=== PATIENT | male | born 1955 | race Caucasian/White ===

== ENCOUNTER 2017-02-01 05:40 | Day surgery (SDC) | payer BC ==
[~2017-02-01] VITALS: Ht 167.6 cm; Wt 99.8 kg
[~2017-02-01 05:40] MED LIST: AMLODIPINE BESYL5 MG PO; CARVEDILOL25 MG PO; LEVOXYL137 MCG PO; LIPITOR10 MG PO; LISINOPRIL-HCT1 EACH PO; LO-DOSE ASPIRIN81 MG PO
--- NOTE | 2017-02-01 08:15 | NUR ---
02/01/17 0814 YfnJorge soto PT CONTINUES TO DENIE ANY PROBLMES.
--- NOTE | 2017-02-02 11:31 | OR ---
[facility] [address] [place], [place] [address] Signed DATE OF PROCEDURE: 02/01/17 PREOPERATIVE DIAGNOSIS: Bilateral perianal comedones. POSTOPERATIVE DIAGNOSIS: Bilateral perianal comedones. PROCEDURE: Excision of perianal comedones x5. ESTIMATED BLOOD LOSS: None. INDICATIONS Chan is a 61-year-old gentleman who has had trouble with fairly significant perianal comedones as of late. He has 1 that he thinks is either infected or draining or both. He had been to his primary care provider. He was asked to see me with respect to the above. His colonoscopy in April 2015 showed some polyps along with some internal hemorrhoids and a little diverticulosis. 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 In the office, we can see that Chan has significant bilateral perianal comedones, simply too large actually to excise in the office. In the left anterior position, there was a little bit of infection, just a little bit of pus in that area and it was draining. I explained the Chan the nature of perianal comedones and the idea behind excising these cysts. They are basically sebaceous glands that are affected and/or clogged up with sebum. This is a s k in condition. It is not related to hemorrhoids, although the surgery is very similar. I explained the Bill we would excise those areas and we just leave them open. They will heal in secondarily over couple of months. He had expressed understanding wished to proceed. He understands the risks including, but not limited to bleeding, infection, scarring, change in contour of the skin as well as recurrent perianal comedones. He had expressed understanding and wished to proceed. PROCEDURE IN DETAIL Chan was ta dean into the operating room and placed in the prone donnie-knife position with appropriate padding and monitoring. Our nurse senior auditor had given him a saddle block. He was given IV sedation per our nurse senior auditor. He was then prepped and draped in the usual sterile fashion. He was given his subcutaneous heparin after the saddle block. He was also given preoperative antibiotics. SCDs were utilized. He was then prepped and draped in the usual sterile fashion. We excised the infected area at the 7 o'clock position 1st and then at the 5 o'clock position was a similar lesion although not infected, it was excised, and then 3 smaller lesions at the 9 and 10 o'clock positions on the left side. All 3 areas were opened and left clean. Local anesthetic was then injected around the anus for a field block. We then placed dry gauze with anus along with dry underwear. Chan was then rotated into the supine position Electronically Signed By: BIGG PENNY MD 02/02/17 1131 PATIENT NAME: CHAN CAVANAUGH OPERATIVE REPORT DATE OF : 55 PHYSICIAN: BIGG PENNY MD REPORT #: [id number] REPORT IS CONFIDENTIAL AND NOT TO BE RELEASED WITHOUT AUTHORIZATION [address] [address] Signed onto his hospital bed. We noticed that his scrotum has quite a bit larger than usual and I suspect he has a hernia and/or hydrocele. We will have to remember to look at that in the office. Afterwards, he was taken into recovery room in stable condition. MD KRISTEN Bennett/Modl /[id number] cc: Dr. Eliezer Bennett Electronically Signed By: BIGG PENNY MD 02/02/17 1131 PATIENT NAME: CHAN CAVANAUGH OPERATIVE REPORT DATE OF : 55 PHYSICIAN: BIGG PENNY MD REPORT #: [id number] REPORT IS CONFIDENTIAL AND NOT TO BE RELEASED WITHOUT AUTHORIZATION
== END 2017-02-01 08:48 | disposition home or self-care (01) ==
LOC: DS 05:40
PROVIDERS: Colon & Rectal Surgery
PROC: 0HBAXZZ Excision of Inguinal Skin, External Approach (ICD-10-PCS; principal; 2017-02-01 06:45)
DX: L72.0 Epidermal cyst (principal); I10 Essential (primary) hypertension; E78.5 Hyperlipidemia, unspecified; R73.03 Prediabetes; I25.10 Atherosclerotic heart disease of native coronary artery without angina pectoris; Z98.890 Other specified postprocedural states; Z79.82 Long term (current) use of aspirin; Z79.899 Other long term (current) drug therapy
CPT/HCPCS: 00902; J0694; J1644; J1885; J2250; J2405; J2704; J7120

== ENCOUNTER 2020-01-27 08:55 | Day surgery (SDC) | payer BC ==
[~2020-01-27] VITALS: Ht 167.6 cm; Wt 104.3 kg
[~2020-01-27 08:55] MED LIST changes: -LEVOXYL137 MCG PO; +LEVOXYL175 MCG PO
--- NOTE | 2020-01-27 11:38 | NUR ---
ABX COMPLETE. PT RESTING COMFORTABLY IN BED. NO FURTHER REQUESTS AT THIS TIME. CALL LIGHT WITHIN REACH.
--- NOTE | 2020-01-27 14:46 | NUR ---
01/27/20 1446 Su Guo 1437-PATIENT ARRIVED TO PACU ON 6L MASK NONAROUSABLE. RN HOLDING JAW TO MAINTAIN OPEN AIRWAY. RR EVEN. DRESSING TO SCROTAL WITH ATHLETIC SUPPORTER CDI. SR. PATIENT MOUTH SUCTIONED THIN SECRETIONS. 1440-PATIENT MAINTAINING OWN AIWAY COUGHING HOB ELEVATED. PILLOW PLACED AGAINST ABDOMEN TO BRACE INCISION. 1445-PATIENT AWAKE DENIES PAIN OR NAUSEA. 6L MASK RR EVEN. ICE TO SCROTAL AREA.
--- NOTE | 2020-01-27 15:19 | NUR ---
PT ARRIVED FROM PACU. REPORT RECEIVED FROM NATASHA Robert RN. PT BED IS LOWERED, SIDE RAILS UP, CALL LIGHT WITHIN REACH. WATER PROVIDED.
--- NOTE | 2020-01-27 15:33 | NUR ---
PT WATER REFILLED AND GIVEN PUDDING. BED RAILS UP, BED LOWERED, CALL LIGHT WITHIN REACH. NO FURTHER REQUESTS AT THIS TIME.
--- NOTE | 2020-01-28 05:59 | OR ---
[facility] [address] [place], [place] [address] Signed DATE OF OPERATION: 01/27/2020 SURGEON: Bigg Penny MD PREOPERATIVE DIAGNOSIS: Incarcerated right inguinal hernia. POSTOPERATIVE DIAGNOSIS: Large noncommunicating right hydrocele. PROCEDURE: Right hydrocelectomy. ESTIMATED BLOOD LOSS: None. 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 He told me he had his aortic arch replaced back in 2014. He also had a substernal goiter removed at the same time. However, he has noticed pain and swelling in the right groin and right scrotum. He said he cannot push it back inside. He decided to come to the office for evaluation. In the office, he had a very large swelling in the right hemiscrotum. It was even difficult to find the testicle. The left testicle was unremarkable. It was difficult to examine the inguinal canal on the right as well as the left. In the office, I had to explain to Chan, he appeared to have a rather large right inguinal hernia extending down to his hemiscrotum. Of course, large hydrocele was always in the differential diagnosis. I reviewed with him the nature of the surgery along with the risks including, but not limited to bleeding, infection, scarring, change in contour of the skin, damage to nerves, ischemic orchitis, recurrent hernias, and chronic pain. He had expressed understanding and wished to proceed. DESCRIPTION OF PROCEDURE: I had met with Chan in our preop area. Once again, we examined the right groin and marked that appropriately. After this, he was taken to the operating room and placed in the supine position under general endotracheal tube anesthesia. He was given preoperative antibiotics along with subcutaneous heparin. SCDs were utilized. He was then prepped and draped in the usual sterile fashion. Once again, we could not feel much fullness in the inguinal canal itself. We utilized a standard oblique incision in Electronically Signed By: BIGG PENNY MD 01/28/20 0559 PATIENT NAME: HCAN CAVANAUGH OPERATIVE REPORT DATE OF : 55 REPORT #: [id number] PHYSICIAN: BIGG PENNY MD PCP: ANNIA WYMAN MD REPORT IS CONFIDENTIAL AND NOT TO BE RELEASED WITHOUT AUTHORIZATION [facility] [address] [place], [place] [address] Signed the groin and carried that down through the tissue bluntly and with the cautery. We opened up the external oblique and we elevated the cord structures at the level of pubic tubercle with the help of a Khalif drain. We examined the direct space and indirect space and we found no hernia component. On palpation and inspection, we found that he had a rather large noncommunicating hydrocele of the right testicle. I did not open the direct space to examine the femoral canal. I did examine the femoral canal below the inguinal ligament and it was unremarkable. I had extended the incision about 2 cm towards the scrotum and even then we could not evacuate the hydrocele as it is quite large. We went ahead and made a small hole in the top of the hydrocele and evacuated all of thin straw-colored serous fluid. That allowed us to bring the testicle and the hydrocele sac up into the operative field. We the cord structures from the hydrocele sac away back down to the epididymis and stopped. We had open the hydrocele sac and we folded it around and then we stopped. The left the gubernacular intact as well. We then excised the entire hydrocele sac with the help of the cautery back to the testicle and again leaving the epididymis in place, we did not perform a Bottleneck procedure. The hydrocele sac was then sent off to the pathology department. We then placed the testicle, the epididymis back into the right hemiscrotum. We made sure there was no torsion. The right hemiscrotum and the groin were irrigated and suctioned out until clear. We then closed the external oblique with the help of a running 2-0 PDS suture down to the external ring. The Annmarie fascia was reapproximated with a running 3-0 Monocryl suture. The dermis was reapproximated with interrupted 3-0 subcuticular Monocryl sutures. The skin edges were reapproximated with a running 5-0 fast absorbing plain gut suture. Dry gauze and tape were applied along with athletic supporter. After this, Chan was awakened from his anesthesia, extubated in the OR, and taken to recovery room in stable condition. Bigg Penny MD ALB/MODL /[id number] cc: Chart Filed Incomplete MD Bigg Meza MD Electronically Signed By: BIGG PENNY MD 01/28/20 0559 PATIENT NAME: CHAN CAVANAUGH OPERATIVE REPORT DATE OF : 55 REPORT #: [id number] PHYSICIAN: BIGG PENNY MD PCP: ANNIA WYMAN MD REPORT IS CONFIDENTIAL AND NOT TO BE RELEASED WITHOUT AUTHORIZATION [id number] [place], [place] [address] Signed Copies: CHART FILED INCOMPLETE ANNIA WYMAN MD, ANDREW L MD ~ Electronically Signed By: BIGG PENNY MD 01/28/20 0559 PATIENT NAME: CHAN CAVANAUGH OPERATIVE REPORT DATE OF : 55 REPORT #: [id number] PHYSICIAN: BIGG PENNY MD PCP: ANNIA WYMAN MD REPORT IS CONFIDENTIAL AND NOT TO BE RELEASED WITHOUT AUTHORIZATION
--- NOTE | 2020-01-29 14:47 | PATH ---
[facility] [address] [place], [place] [address] Signed SPECIMEN(S): A RIGHT HYDROCELE SAC SPECIMEN SOURCE: A. RIGHT HYDROCELE SAC CLINICAL HISTORY: Right incarcerated inguinal hernia, right hydrocele. FINAL PATHOLOGIC DIAGNOSIS: Hydrocele sac, right, excision: - Fibromembranous tissue with fibrosis and chronic inflammation, consistent with hydrocele sac. - Focal foreign body type giant cell reaction with cholesterol clefting and pigmented macrophages, feature suggestive of prior injury/rupture. NAL:cml:C2NR MICROSCOPIC EXAMINATION: Histologic sections of all submitted blocks are examined by light microscopy. These findings, together with the gross examination, support the pathologic diagnosis. Immunohistochemical stains (with appropriately staining controls) were performed. Focal entrapped epithelioid cells are present in the fibromembraous tissue. Immunohistochemical stains (with appropriately staining controls) were performed. The entrapped cells are positive for calretinin and WT1, supporting mesothelial origin. These finding confirm the above diagnosis. NAL:cml GROSS DESCRIPTION: The specimen, labeled "WR," and designated on the requisition "right hydrocele sac," is received in formalin and consists of an irregular portion of pink-georges to hemorrhagic soft to membranous tissue (17.7 x 4.5 x 0.9 cm). Electrical Engineering Manager sections are submitted in cassette (A1). AC (under the direct supervision of a pathologist) The Gross Description was prepared using a voice recognition system. The report was reviewed for accuracy; however, sound-alike word errors, addition and/or deletions may occur. If there is any question about this report, please contact Client Services. ADDITIONAL NOTES: Immunohistochemical and/or in situ hybridization studies were performed on this PATIENT NAME: CARRIE CAVANAUGH PATHOLOGY DATE OF : 55 REPORT #: [id number] PHYSICIAN: JARRED PATHOLOGY PCP: ANNIA WYMAN MD REPORT IS CONFIDENTIAL AND NOT TO BE RELEASED WITHOUT AUTHORIZATION [facility] [address] [place], [place] [address] Signed case with the appropriate positive controls that react as expected. This test was developed and its performance characteristics determined by [facility]. It has not been cleared or approved by the U.S. Food and Drug Administration. The FDA has determined that such clearance or approval is not necessary. This test is used for clinical purposes. It should not be regarded as investigational or for research. [facility] is certified under the Clinical Laboratory Improvement Amendments of 1988 (CLIA) as qualified to perform high complexity clinical laboratory testing. PERFORMING LABORATORY: The technical component was performed by [facility], [address] [place] [id number] (Erp Specialist: Araceli Bravo MD; CLIA# [id number]). [facility], [address] [address] (CLIA# [id number]). Diagnostician: Marnie Stoll MD Pathologist Electronically Signed 01/29/2020 Copies: ~ PATIENT NAME: CARRIE CAVANAUGH PATHOLOGY DATE OF : 55 REPORT #: [id number] PHYSICIAN: JARRED CABAN PCP: ANNIA WYMAN MD REPORT IS CONFIDENTIAL AND NOT TO BE RELEASED WITHOUT AUTHORIZATION
== END 2020-01-27 16:20 | disposition home or self-care (01) ==
LOC: DS 08:55
PROVIDERS: ATTEND Colon & Rectal Surgery
PROC: 0VBF0ZZ Excision of Right Spermatic Cord, Open Approach (ICD-10-PCS; principal; 2020-01-27 09:30)
DX: N43.3 Hydrocele, unspecified (principal); I10 Essential (primary) hypertension; I25.10 Atherosclerotic heart disease of native coronary artery without angina pectoris; E55.9 Vitamin D deficiency, unspecified; E03.9 Hypothyroidism, unspecified; Z79.899 Other long term (current) drug therapy; Z79.82 Long term (current) use of aspirin
CPT/HCPCS: 00920; J0330; J0690; J1100; J1644; J1885; J2001; J2250; J2405; J2704; J7121

== ENCOUNTER 2020-06-16 19:30 | Inpatient (IN) | payer BC ==
[~2020-06-16] VITALS: Ht 167.6 cm; Wt 88.4 kg
--- NOTE | 2020-06-17 01:30 | NUR ---
0116 pt ARRIVED TO FLOOR VIA STRETCHER, AMBULATED SELF TO BED. ASSESSMENT DONE. pt REPORTED 7/10 PAIN, REFUSED PAIN MEDICAITON AT THIS TIME. LUNGS HAVE CRACKLES IN THE BASES, CLEAR IN THE UPPERS. pt REPORTED AN "OPEN HEART SURGERY, TO REPAIR AN AORTIC ANEURYSM" SCAR NOTED. pt ALERT AND ORIENTED. SISTER, RANDA, ARRIVED WITH pt, LEFT AFTER ADMISSION WAS COMPLETED. pt GIVEN XARELTO PER ORDERS, LR INFUSING PER ORDERS. pt REPORTS HE WORKS AT [employer] AND LIVES ALONE. AMBULATES WITHOUT ASSISTANCE AT BASELINE. CALL LIGHT IN HAND. ORIENTATION TO UNIT AND ROOM.
--- NOTE | 2020-06-17 03:24 | NUR ---
ROUNDED ON pt. RESTING IN BED WITH EYES CLOSED, RESPIRATIONS REGULAR, RATE 20. CALL LIGHT WITHIN REACH.
--- NOTE | 2020-06-17 05:45 | NUR ---
IN TO DO ASSESSMENT. pt RESTING IN BED, EYES CLOSED, RESPIRATIONS REGULAR AND UNLABORED. WOKE TO VOICE. REPORTED "SOME PAIN" REFUSED PAIN MEDICATION AT THIS TIME. NO CHANGES IN ASSESSMENT. pt ABLE TO URINATE AT BEDSIDE USING URINAL. BREAKFAST ORDER TAKEN. CALL LIGHT WITHIN REACH.
--- NOTE | 2020-06-17 07:30 | NUR ---
PATIENT REPORT RECIEVED FROM PUBLICATIONS PRODUCTION SUPERVISOR RN. PATIENT RESTING IN BED AT THIS TIME. PATIENT CALLS APPROPRIATELY. WILL CONTINUE TO CLOSELY MONITOR.
[2020-06-17] MEDS ORDERED: ISOSORBIDE MONO30 MG PO (08:19)
--- NOTE | 2020-06-17 09:11 | NUR ---
MED REC COMPLETE
--- NOTE | 2020-06-17 09:30 | NUR ---
PATIENT SHIFT ASSESSMENT COMPLETED. PATIENT SITTING UP IN THE BED AND FINISHED HIS BREAKFAST. PATIENTS BREATH SOUNDS CLEAR AND DIMINISHED IN BASES. PATIENT DENIES SOB. RR 18. SPO2 98% ON RA. PATIENT DOES REPORT SOME PAIN IN RIGHT RIB, BUT DENIES WANTING PRN PAIN MEDICATION. WILL PLACE PATIENT ON TELEMETRY UNIT TO ALLOW PATIENT TO WALK TO THE BATHROOM ON HIS OWN. PATIENT STATES "I FEEL FINE, I WAS HOPING TO GO HOME TODAY". WILL CHECK WITH MD WHAT HER PLAN OF CARE IS FOR PATIENT. REST OF ASSESSMENT IS WNL. WILL CONTINUE TO CLOSELY MONITOR.
--- NOTE | 2020-06-17 10:00 | NUR ---
Pt lives in [place] in a 1 story home with 2 steps. Works at [employer]. He lives alone. Denies use of DME. States he has had a cough h and coughed sm amt of blood the last few days. He denies sob. Pt denies needs and states his sisters will help if he has any needs. Pt plans on dc to home when cleared medically, with assist from his sisters.
--- NOTE | 2020-06-17 11:30 | NUR ---
IN TO SEE PATIENT. PATIENT RESTING ON THE COUCH RIGHT NOW. PATIENT UPDATED ON PLAN OF CARE TO BE ADMITTED THROUGH THE DAY. NO OTHER QUESTIONS AT THIS TIME. PATIENT CONTINUES TO DENY SOB. PAIN IS TOELRABLE AT THIS TIME. CALL LIGHT IN REACH. WILL CONTINUE TO CLOSELY MONITOR.
--- NOTE | 2020-06-17 11:49 | NUR ---
PODIATRIC ASSISTANT IN WITH PT, WILL CHECK BACK.
--- NOTE | 2020-06-17 12:47 | EKG ---
[facility] [address] [facility] [place] [address] Signed Normal sinus rhythm Possible Left atrial enlargement Nonspecific ST abnormality Abnormal ECG When compared with ECG of 19-JAN-2020 11:03, No significant change was found Confirmed by ROBERT MCADAMS MD ([id number]) on 06/17/2020 12:47:41 PM Electronically Signed By: ROBERT MCADAMS MD 06/17/20 1247 PATIENT NAME: AFSHANCARRIE VERNELL Electrocardiogram DATE OF : 55 PHYSICIAN: ROBERT MCADAMS MD REPORT #: [id number] REPORT IS CONFIDENTIAL AND NOT TO BE RELEASED WITHOUT AUTHORIZATION
--- NOTE | 2020-06-17 13:30 | NUR ---
PATIENT RESTING ON THE COUCH AT THIS TIME. PATIENTS SISTER IS IN THE ROOM. UPDATED ON PLAN OF CARE. NO OTHER NEEDS AT THIS TIME. WILL CONTINUE TO CLOSELY MONITOR.
--- NOTE | 2020-06-17 15:30 | NUR ---
PATIENT WALKING AROUND IN HIS ROOM AND TOLERATING WELL. PATIENTS SISTER IN TO SEE PATIENT. NO OTHER NEEDS AT THIS TIME. PATIENT DECLINED WANTING TO ORDER DINENR YET. WILL CONTINUE TO CLOSELY MONITOR.
--- NOTE | 2020-06-17 17:30 | NUR ---
PATIENTS DINNER FINISHED. PATIENT RESTING IN THE CHAIR. MAGNESIUM FINISHED AND TURNED OFF. PATIENTS SISTER IN AT THE BEDSIDE. PATIENT UP TO THE BATHROOM INDEPENDLENTLY. WILL BE BACK TO SEE PATIENT SHORTLY.
--- NOTE | 2020-06-17 18:00 | NUR ---
PATIENT UPDATED ON PLAN OF CARE. PATIENT WILL TRANSFER TO THE MEDICAL UNIT. PATIENT AGREEABLE TO PLAN OF CARE. ALL QUESTIONS ANSWERED. NO OTHER NEEDS AT THIS TIME. WILL CONTINUE TO CLOSELY MONITOR.
--- NOTE | 2020-06-17 19:20 | NUR ---
THIS [employer]ER[employer] PRODU[employer] SALES ENGINEER TRANSFERED PT TO [facility] VIA WHEELCHAIR
--- NOTE | 2020-06-17 19:45 | NUR ---
PATIENT JUST MOVED OVER FROM CCU. PATIENT HAVING NO PAIN, OR ANY ISSUES AT ALL AT THIS TIME. PATIENT HAS A FAMILY MEMBER VISITING WITH HIM, PATIENT UP IN THE CHAIR WATCHING TV, ICE WATER GIVEN AND CALL LIGHT IN REACH. PATIENT INDEPENDENT IN ROOM.
--- NOTE | 2020-06-17 21:59 | NUR ---
PATIENT RESTING QUIETLY IN BED, EYES CLOSED, LIGHTS DOWN, RESPIRATIONS REGULAR AND EVEN, CALL LIGHT IN REACH.
--- NOTE | 2020-06-17 23:51 | NUR ---
PATIENT CONTINUES TO REST QUIETLY IN BED, RESPIRATIONS REGULAR AND EVEN, EYES CLOSED, CALL LIGHT IN REACH.
--- NOTE | 2020-06-18 02:08 | NUR ---
PATIENT CONTINUES TO REST QUIETLY, EYES CLOSED, RESPIRATIONS, REGULAR AND EVEN, SUPINE, CALL LIGHT IN REACH.
--- NOTE | 2020-06-18 03:08 | NUR ---
PATIENT STILL RESTING SUPINE, RESPIRATIONS REGULAR AND EVEN, EYES CLOSED, CALL LIGHT IN REACH.
--- NOTE | 2020-06-18 05:03 | NUR ---
PATIENT IS STILL RESTING QUIETLY, RESPIRATIONS REGULAR AND EVEN, EYES CLOSED, CALL LIGHT IN REACH.
--- NOTE | 2020-06-18 06:16 | NUR ---
IN TO GET PT VITALS, PT UP IN CHAIR, WILL PROVIDE PT WITH COFFEE ONCE DONE BREWING, RN IN FOR ASSESMENT, NO FURTHER NEEDS AT THIS TIME
--- NOTE | 2020-06-18 06:23 | NUR ---
PATIENT RESTED MOST OF THE NIGHT, BUT DID GET UP TO VOID 5 TIMES. PATIENT STILL BREATHING WITHOUT DIFFICULTY AND HAS NOT BEEN HAVING PAIN. PATIENT SAYS ,"I'M AT THE STARTING GATE AND READY TO GO." PATIENT IS READY TO GO HOME.
--- NOTE | 2020-06-18 07:15 | NUR ---
REPORT RECEIVED FROM DORCAS SY. PT UP TO CHAIR. PT REPORTS 8/10 PAIN IN UPPER CHEST WITH DEEP BREATHS. PT REPORTS PAIN IS "TOLERABLE" AND DENIES NEED FOR PAIN MEDICATION AT THIS TIME. PT ANTICIPATING BREAKFAST AND DISCHARGE. PT UPDATED ON PLAN OF CARE. NO ADDITIONAL REQUESTS OR COMPLAINTS AT THIS TIME. CALL LIGHT WITHIN REACH.
--- NOTE | 2020-06-18 07:36 | NUR ---
MORNING ASSESSMENT AND MEDICATION DUE. PT UP TO CHAIR WATCHING VIDOES ON HIS PHONE. PT DENIES PAIN AND NAUSEA. REPORTS PAIN AT 8/10 IN UPPER CHEST ONLY WITH DEEP BREATHING. ASSESSMENT DONE: PT TYPICALLY TAKING SHALLOW BREATHS, LUNG SOUNDS CLEAR. NO ACCESSORY MUSCLE USE NOTED. O2 AT 96% ON ROOM AIR. PT REPORTS HE CONTINUES TO COUGH UP " A LITTLE BIT OF BLOOD EVERY ONCE IN A WHILE." NO COUGH OR SPUTUM NOTED AT THIS TIME. SKIN GROSELY WELL INTACT. PT STEADY ON FEET AND DENIES SHORTNESS OF BREATH WITH ACTIVITY. PT REMAINS UP TO CHAIR ANTICIPATING BREAKFAST. PT STATES HE FEELS READY TO GO HOME AND HOPES TO LEAVE THIS MORNING. PT REPORTS HIS SISTER WILL BE ARRIVING TO TAKE HIM HOME. NO ADDIITONAL REQUESTS OR COMPLAINTS. COFFEE PROVIDED. CALL LIGHT WITHIN REACH.
[2020-06-18] MEDS ORDERED: XARELTO15 MG PO (09:23)
[2020-06-18] MEDS ORDERED: POTASSIUM CHLO10 MEQ PO (09:24)
[2020-06-18] MEDS ORDERED: XARELTO20 MG PO (09:24)
[2020-06-18] MEDS ORDERED: MAGNESIUM OXID400 M1 PO (09:25)
--- NOTE | 2020-06-18 09:26 | NUR ---
PATIENT SITTING UP IN CHAIR, VITALS AND I&OS CHARTED. CALLL LIGHT IN REACH, NO OTHER NEEDS AT THIS TIME
--- NOTE | 2020-06-18 10:16 | NUR ---
THIS RN TO ROOM TO CHECK ON PT. PT UP TO CHAIR VISITING WITH SISTER. PT DENIES PAIN AND NASUEA AND STATES HE IS READY FOR DISCHARGE. PT UP TO DRESS SELF, STEADY ON FEET, NO ASSISTANCE NEEDED. PT DENIES SHORTNESS OF BREATH WITH ACTIVITY. IV DC'D PER PROTOCOL, RODRIGO AND ROSARIO APPLIED. NO ADDITIONAL REQUESTS OR COMPLAINTS AT THIS TIME. CALL LIGHT WITHIN REACH. SISTER AT BEDSIDE.
--- NOTE | 2020-06-18 10:34 | NUR ---
PATIENT UP IN CHAIR, IN ROOM. D/C VITALS CHARTED. RN IN FOR D/C INSTRUCTIONS
--- NOTE | 2020-06-18 10:42 | NUR ---
PT READY FOR DISCHARGE. PHARMACIST TO BEDSIDE TO REVIEW MEDICATIONS WITH PT AND PTS SISTER. PT AND HIS SISTER VERBALIZE UNDERSTANDING OF MEDICAITONS AND STATE THEIR QUESTIONS HAVE BEEN ANSWERED. DISCHARGE INSTRUCTIONS REVEIWED WITH PT AND PTS SISTER. PT AND SISTER VERBALIZES UNDERSTANDING OF INSTRCUTIONS, MEDICAITONS, AND FOLLOW UP APPOINTMENTS. PT TRANSFERES SELF TO WHEEL CHAIR AND IS WHEELED FROM MED/SURG TO MEET SISTER OUT FRONT. NO ADDITIONAL REQUESTS OR CONCERNS.
== END 2020-06-18 10:45 | disposition home or self-care (01) | DRG 176 ==
LOC: ED 19:30 → CCU 19:32 → ED 06-17 00:53 → CCU 06-17 09:14 → MS 06-17 19:34
PROVIDERS: ADMIT Internal Medicine; ATTEND Internal Medicine
DX: I26.99 Other pulmonary embolism without acute cor pulmonale (principal); Z20.822 Contact with and (suspected) exposure to COVID-19; I73.9 Peripheral vascular disease, unspecified; I10 Essential (primary) hypertension; E78.5 Hyperlipidemia, unspecified; E03.9 Hypothyroidism, unspecified; E87.6 Hypokalemia; E83.42 Hypomagnesemia; T50.2X5A Adverse effect of carbonic-anhydrase inhibitors, benzothiadiazides and other diuretics, initial encounter; Z79.899 Other long term (current) drug therapy; Z79.82 Long term (current) use of aspirin
CPT/HCPCS: 71045; 71260; 80053; 81001; 83690; 83735; 84484; 85025; 85379; 87088; 93005; 93010; 99285-25; C9803; G0378; J3475; J7121; Q9967; U0003